=== PATIENT | female | born 2000 | race Caucasian/White ===

== ENCOUNTER 2023-01-24 12:08 | Outpatient (CLI) | payer OTHER | END 2023-01-24 12:19 | disposition home or self-care (01) | LOC: TOM 12:08 | PROVIDERS: ATTEND Orthopaedic Surgery | DX: S93.432A Sprain of tibiofibular ligament of left ankle, initial encounter (principal); S82.892A Other fracture of left lower leg, initial encounter for closed fracture ==

== ENCOUNTER 2023-01-27 06:02 | Day surgery (SDC) | payer OTHER ==
[~2023-01-27] VITALS: Ht 170.2 cm; Wt 72.1 kg
== END 2023-01-27 15:30 | disposition home or self-care (01) ==
LOC: CIR.AMB 06:02
PROVIDERS: ATTEND Orthopaedic Surgery
DX: S82.62XA Displaced fracture of lateral malleolus of left fibula, initial encounter for closed fracture (principal); S93.432A Sprain of tibiofibular ligament of left ankle, initial encounter; I10 Essential (primary) hypertension; Z20.822 Contact with and (suspected) exposure to COVID-19
CPT/HCPCS: 27829; L8699

== ENCOUNTER 2023-02-19 11:55 | Outpatient (CLI) | payer OTHER | END 2023-02-19 12:04 | disposition home or self-care (01) | LOC: RAD 11:55 | PROVIDERS: ATTEND Orthopaedic Surgery | DX: S93.432D Sprain of tibiofibular ligament of left ankle, subsequent encounter (principal); S82.892D Other fracture of left lower leg, subsequent encounter for closed fracture with routine healing ==

== ENCOUNTER → 2023-05-08 17:10 | Outpatient (CLI) | payer OTHER | END | disposition home or self-care (01) | LOC: RAD 17:10 | PROVIDERS: ATTEND Orthopaedic Surgery | DX: S93.432D Sprain of tibiofibular ligament of left ankle, subsequent encounter (principal); S82.892D Other fracture of left lower leg, subsequent encounter for closed fracture with routine healing ==